=== PATIENT | male | born 1965 | race Caucasian/White ===

== ENCOUNTER 2017-01-16 19:30 | Emergency (ER) | payer OTHER ==
[~2017-01-16] VITALS: Ht 180.3 cm; Wt 97.6 kg
[~2017-01-16 19:30] MED LIST: ACET325 PO; BUPR-197 PO; CIPR500T4 PO; FLAG500T PO; IBUP400T20 PO; LACT PO
[2017-01-16 19:42] VITALS: BP 114/69; PULSE 79; RESP 18; TEMP 97.7; O2SAT 98
[2017-01-16] MEDS ORDERED: AMPH1TAB40 PO (19:52)
[2017-01-16] MEDS ORDERED: ZOLP5TAB3 PO (19:52)
[2017-01-16] MEDS ORDERED: IBUP1TAB7 PO (20:44)
[2017-01-16] MEDS ORDERED: ROBA500T PO (20:44)
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
== END 2017-01-16 20:53 | disposition home or self-care (01) ==
LOC: PHEFT 19:30
DX: Z04.1 Encounter for examination and observation following transport accident (principal); Z95.0 Presence of cardiac pacemaker
CPT/HCPCS: 99283